=== PATIENT | male | born 1980 | race African-American/Black ===

== ENCOUNTER 2017-06-12 09:22 | Inpatient (IN) | payer OTHER, SELFPAY ==
[2017-06-12] MEDS ORDERED: Fentanyl 100 MCG/2 ML VIAL SLOW IVP SCH (09:45)
[2017-06-12] MEDS ORDERED: Midazolam HCl 2 mg/2 ml Vial ONE (09:59)
[2017-06-12] MEDS ORDERED: CEFAZOLIN/Water 2 GM/20 ML SYRINGE ONE (10:35)
[2017-06-12] MEDS ORDERED: Fentanyl 100 MCG/2 ML VIAL ONE ×2 (10:37→10:47)
[2017-06-12] MEDS ORDERED: traMADol HCl 50 MG TAB PO PRN ×3 (11:04→12:41)
[2017-06-12] MEDS ORDERED: HYDROcodone/Acetaminophen 10/325 mg Tablet PO PRN ×2 (11:04→12:41)
[2017-06-12] MEDS ORDERED: Ondansetron HCl/PF 4 MG/2 ML Vial IV PRN ×2 (11:04→12:41)
[2017-06-12] MEDS ORDERED: TETANUS AND DIPHTHERIA TOX/PF 0.5 ML DISP.SYRIN IM SCH (11:15)
[2017-06-12] MEDS ORDERED: Communication Order-Pharmacy FS SCH (11:15)
--- NOTE | 2017-06-12 11:28 | CON ---
DATE OF CONSULTATION: 06/12/2017 HISTORY OF PRESENT ILLNESS: ER consulted us on patient who was sent in from [place]. He was workin g in a tank with mud in it, cleaning it out. Unfortunately, breaking up the mud, the grey washer ran across his left great toe. The patient was in excruciating pain when I saw him in the ER, but n ow he has gotten some IV medications and same day surgery and a block in his leg and he is much happi er. The patient states he is a healthy individual other than smoking. Did not hit his head or have any other injuries than what stated above. PAST MEDICAL HISTORY: Healthy. SOCIAL HISTORY: With his family at the bedside. He is a smoker. No drinking or drug products whats oever. He has smoked for 20 years a pack a day. FAMILY HISTORY: Noncontributory. MEDICATIONS: None. ALLERGIES: None. REVIEW OF SYSTEMS: Left great toe pain, foot pain, otherwise no chest pain or shortness of breath, n o GI, urology issues whatsoever. Denies rest of review of systems. PHYSICAL EXAMINATION: GENERAL: Well-nourished individual in obvious pain. Speech clear, fluent, oriented x3. HEENT: Normal exam. NECK: Supple, trachea midline. EXTREMITIES: Upper extremities moving well. They are equal size, shape, symmetry normal bulk and to ne. EXTREMITIES: Equal size, shape, symmetry, normal bulk and tone with the exception of the right great toe, which has a pretty significant abraded injury to the lateral great toe, looks like there may be some mud impacted into the toe also. He is moving both of his lower extremities well. He has good sensations in both lower extremities. DP, PT pulses are equal and symmetric. ASSESSMENT: dish washer injury to left great toe. PLAN: The patient is healthy, his n.p.o. status is good, we plan on putting him in Same Day Surgery, get a block in him for pain control for some IV pain medications, he received Rocephin in the ER. O ur plan is to wash him out this morning and get his pain under control. I have sat and talked with t he family, explained the risks and benefits. They are amenable to go forth with the I and D washout of that left great toe. We will get him tucked into the hospital. He may need to be here for a few days just for IV antibiotics, but we will see how he does. Their questions have been answered. We w ill get them consented for surgery and get him fixed up today.
[2017-06-12] MEDS ORDERED: Meperidine HCl/PF 25 MG/ML VIAL ONE (11:31)
[2017-06-12] MEDS ORDERED: Ketorolac Tromethamine 30 MG/ML VIAL IVP SCH ×2 (12:00→12:41)
[2017-06-12] MEDS ORDERED: Labetalol HCl 100 MG/20 ML VIAL ONE (12:01)
[2017-06-12] MEDS ORDERED: Fentanyl 100 MCG/2 ML VIAL SLOW IVP PRN (12:41)
[2017-06-12] MEDS ORDERED: CEFAZOLIN/Water 2 GM/20 ML SYRINGE SLOW IVP SCH (12:41)
[2017-06-12] MEDS ORDERED: Morphine 4 MG/ML VIAL SLOW IVP PRN ×3 (12:41→13:01)
[2017-06-12] MEDS ORDERED: RENALLY ADJUST ABX FS SCH (12:41)
[2017-06-12 14:16] VITALS: BMI 28.8
[2017-06-12] MEDS: cefTRIAXone\\ROCEPHIN 2 GM in Sodium Chloride 0.9% 100 ML IVPB SCH (14:52)
--- NOTE | 2017-06-12 16:04 | CON ---
DATE OF CONSULTATION: 06/12/2017 CHIEF COMPLAINT: Right foot pain. HISTORY OF PRESENT ILLNESS: Mr. Jones is a 36-year-old male who was working in [place]. He was using a high pressure sprayer to clean the tank. He was wearing work boots. He accidentally hit the top of his left foot with the sprayer. This went through the boot into his great toe and dorsal foot. He had immediate pain. He had difficulty walking. He was taken to the emergency department and then transferred to [place]. He is having severe pain in the foot, otherwise, no other injuries. He is healthy at baseline. PAST MEDICAL HISTORY: Negative. PAST SURGICAL HISTORY: Negative. ALLERGIES: None. SOCIAL HISTORY: The patient smokes cigarettes occasionally. Denies alcohol or drug use. FAMILY MEDICAL HISTORY: Noncontributory. REVIEW OF SYSTEMS: Positive only for right foot pain. Negative otherwise, 10 point review of systems. PHYSICAL EXAMINATION: GENERAL: The patient is alert, oriented, sitting upright, in no apparent distress. RESPIRATORY: Breathing comfortably. ABDOMEN: Soft, nontender, and nondistended. MUSCULOSKELETAL: The patient's right foot has a 4-5 mm wound over the dorsal medial aspect of the great toe near the MTP joint. This travels deeply into the underlying tissues. There is no active drainage. There is swelling and tenderness to palpation. He has difficulty with flexion and extension of the toe. Sensation is intact. No calf pain or tenderness. He does have dorsal foot tenderness. IMAGES: left foot X-rays demonstrate gas and swelling in the soft tissues. There is no fracture. IMPRESSION: High rubber washer injury to the left foot. PLAN: At this point, the patient will need to go to the operating room. He will need irrigation and debridement of his wounds with exploration. He will likely need to have a wound left open given the trauma to the tissues. He has a high risk of progression to an infection. I have seen severe infections from this exact injury in the past. He will need intravenous antibiotics, broad spectrum. We will watch him for development of compartment syndrome as well. AMELIA
--- NOTE | 2017-06-12 16:57 | OP ---
OPERATION: Irrigation and debridement of left foot wound. PREOPERATIVE DIAGNOSIS: High washery engineer injury to the left great toe and foot. POSTOPERATIVE DIAGNOSIS: High washery engineer injury to the left great toe and foot. COMPLICATIONS: None. ESTIMATED BLOOD LOSS: Minimal. SURGEON: Jose Juan Houston M.D. ANESTHESIA: General plus local. INDICATIONS: Mr. Jones is a 36-year-old male, who injured his foot using a high washery engineer. T his was contaminated with a dirty without fluid and water. This went through his boot. He was indic ated for irrigation and debridement with opening of the wound to hopefully eradicate chances of infec tion and relieve pressure from the wound. He is aware of risk, which primarily include infection, fu rther tissue injury, wound complication and others. He elected to proceed. DESCRIPTION OF PROCEDURE: Mr. Jones was identified in the preoperative holding area. His correct e xtremity was marked. He was carried to the operating room. He was positioned supine. General anest hesia was induced. A multidisciplinary timeout was performed. The left foot was prepped and draped in sterile fashion. We proceeded to open the patient's traumatic wound, which was over the dorsal medial aspect of his gr eat toe near the MTP joint. This was extended proximally and distally. The skin edges were trimmed. We performed an excisional debridement sharply debriding with a knife as well as using a curette an d rongeur. There was significant fluid, but no gross contamination. We thoroughly irrigated with co pious of lavage using irrigant. We worked more proximally over the dorsal foot to a clean bed and out of the zone of injury. We very loosely closed with a 3-0 nylon suture. A sterile dressing was applied. A local anesthetic was injected. The patient was then taken to the recovery room in good c ondition without complication.
[2017-06-12] MEDS ORDERED: Bupivacaine HCl 0.5%/Epinephrine 1:200,000/PF 30 ml Vial ONE (17:02)
[2017-06-12] MEDS ORDERED: PROPOFOL 200 MG/20 ML VIAL ONE (17:04)
[2017-06-12] MEDS ORDERED: Lidocaine 1% PF 5 ML VIAL ONE (17:04)
[2017-06-12] MEDS ORDERED: Succinylcholine Chloride 20 MG/ML 10 ml SYRINGE FS ONE (17:04)
[2017-06-12] MEDS: CEFAZOLIN/Water 2 GM/20 ML SYRINGE SLOW IVP SCH (18:45)
[2017-06-12] MEDS: Ketorolac Tromethamine 30 MG/ML VIAL IVP SCH (19:43)
[2017-06-13] MEDS: Ketorolac Tromethamine 30 MG/ML VIAL IVP SCH ×2 (01:25→06:45)
[2017-06-13] MEDS: CEFAZOLIN/Water 2 GM/20 ML SYRINGE SLOW IVP SCH (01:51)
[2017-06-13] MEDS: HYDROcodone/Acetaminophen 10/325 mg Tablet PO PRN ×2 (02:53→09:36)
[2017-06-13] MEDS ORDERED: Enoxaparin Sodium 30 MG/0.3 ML SYRINGE SC SCH (09:00)
[2017-06-13] MEDS ORDERED: Acetaminophen/Codeine 30-300mg Tablet PO PRN ×2 (09:47)
[2017-06-13 11:26] VITALS: BP 141/79; TEMP 98.3
[2017-06-13] MEDS: cefTRIAXone\\ROCEPHIN 2 GM in Sodium Chloride 0.9% 100 ML IVPB SCH (11:41)
--- NOTE | 2017-06-15 09:30 | DIS ---
DATE OF ADMISSION: 06/12/2017 DATE OF DISCHARGE: 06/13/2017 PREOPERATIVE DIAGNOSIS: High-grey washer injury to the left great toe and foot. DISCHARGE DIAGNOSIS: High-grey washer injury to the left great toe and foot. PROCEDURE: The patient underwent irrigation and debridement of left foot wound. HOSPITAL COURSE: Hospital stay was unremarkable. We struggled a little bit with pain control, but b y postoperative day #1, he was getting much better. There are no other hospital complications. DISCHARGE CONDITION: Good/stable. DISPOSITION: Home. FOLLOWUP: Followup would be in 7-14 days or sooner if there are problems and/or concerns. DISCHARGE MEDICATIONS: Given with usage instructions. This is Jacinto Jones PA-C dictating for Dr. Jose Juan Houston.
== END 2017-06-13 15:04 | disposition home or self-care (01) | DRG 605 ==
LOC: ERS 09:22 → SDC 10:15 → SJJU 10:36
PROVIDERS: ADMIT Orthopaedic Surgery; ATTEND Orthopaedic Surgery
PROC: 0HBNXZZ Excision of Left Foot Skin, External Approach (ICD-10-PCS; principal; 2017-06-12)
DX: S91.102A Unspecified open wound of left great toe without damage to nail, initial encounter (principal); F17.210 Nicotine dependence, cigarettes, uncomplicated; X58.XXXA Exposure to other specified factors, initial encounter; Y93.89 Activity, other specified; Y92.89 Other specified places as the place of occurrence of the external cause; Y99.0 Civilian activity done for income or pay
CPT/HCPCS: 96374; G0390; G8978-GP-CJ; G8979-GP-CH; J0670; J0696; J1650; J1885; J2001; J2175; J2250; J2270; J2405; J2704; J3010; J7050